=== PATIENT | male | born 1980 | race Caucasian/White ===

== ENCOUNTER 2019-05-29 07:52 | Outpatient (RCR) | payer MEDICAID, SELFPAY ==
--- NOTE | 2019-05-29 07:47 | PTOPEVAL ---
Thank you for referring this patient to [facility]. Please review, sign, date and return this plan of care [facility]. I agree with and certify that the following plan of care is medically necessary. Referring Physician Date Admitting Provider: Attending Provider: Floresita Daugherty MD Referring Provider: *PT Outpatient Evaluation Start: 05/29/19 07:04 Freq: Status: Active Protocol: Document 05/29/19 07:05 RUST (Rec: 05/29/19 07:37 RUST [id number]) Therapy Assessment Status Assessment Status Assessment Status Evaluation Outpatient Past Medical History Past Medical History Past Medical History Status Patient Denies Significant Past Medical History Evaluation Information Problem Diagnosis neck pain Onset 05/16/19 Additional Evaluation Detail ndi = 50% Subjective Information patient reports he has been Query Text:As Reported By Patient/ having pain in the neck and L Family shoulder for about 3 weeks. he reports no injury. he reports was active the night before playing with his child. he reports then a sharp turnt he next day he had a small twinge when turning his head quikcly . he reports he now has pain down the L shoulder and numbness into the L hand. he reports the numbness to the whole hand, but greater along the smaller digits. Prior Level of Function Comments Additional Prior Level of Function patient reports priro to 3 Comments weeks ago he was pain and symptom free. he reports he has had pain in the low back years ago and had good results from physical therapy. 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 he reprots icnreaed pain with moving the neck, especially turning head to look over shoulders. Pain Assessment Timing of Pain Assessment Timing of Pain Assessment Assessment Pain Scale Pain Scale Used Numeric (1 - 10) Self Report Pain Assessment Left Neck Reported Pain Level 9 Pain Description Tightness P
--- NOTE | 2019-08-12 07:47 | PCPTNOTE ---
08/12/19 - mr. tolbert has not been to skilled PT in over a month. as of this date, he will be dc'd from skilled PT due to lack of continued attendance and a loss of insurance authorization. all progress towards goals will be taken from his most recent evaluation/note.
== END 2019-06-19 09:05 | disposition home or self-care (01) ==
LOC: CHSPT 07:52
PROVIDERS: Visit Provider Internal Medicine
DX: M54.2 Cervicalgia (principal)
CPT/HCPCS: 97012; 97014; 97110; 97140; 97161; G0283

== ENCOUNTER 2019-11-10 16:57 | Outpatient (CLI) | payer BC, SELFPAY ==
--- NOTE | ~2019-11-10 | XR_ITS ---
XR chest 2V DATE: 11/10/2019 17:18 INDICATION: Hypertension. TECHNIQUE: PA and lateral views COMPARISON: None FINDINGS: There is bilateral hyperinflation. No pulmonary infiltrate or consolidation, pleural effusi on or pulmonary vascular congestion or pneumothorax. Normal heart size. No hilar or mediastinal enlargement. Thoracic scoliosis and mild degenerative change. IMPRESSION: Bilateral hyperinflation No active cardiopulmonary disease Scoliosis and mild degenerative change of the thoracic spine Reviewed, dictated and finalized at location A.
== END 2019-11-10 16:58 | disposition home or self-care (01) ==
PROVIDERS: PCP Internal Medicine; Visit Provider Internal Medicine
DX: I10 Essential (primary) hypertension (principal); R91.8 Other nonspecific abnormal finding of lung field
CPT/HCPCS: 71046

== ENCOUNTER 2019-11-11 08:06 | Emergency (ER) | payer BC, SELFPAY ==
[2019-11-11 08:10] VITALS: BP 157/96; PULSE 101; RESP 18; TEMP 36.5; O2SAT 100
--- NOTE | 2019-11-11 08:14 | ECG_ITS ---
Measurements Intervals [place] Rate: 98 P: 76 UT: 157 QRS: 91 QRSD: 100 T: 72 QT: 334 QTc: 427 Interpretive Statements SINUS RHYTHM RIGHT AXIS DEVIATION PEAKED T WAVES- CONSIDER HYPERKALEMIA OR ISCHEMIA BASELINE ARTIFACT- II, III, AVR, AVF ABNORMAL ECG Electronically Signed On 11-11-2019 8:37:14 CDT by Isauro Raya D.O.
[2019-11-11 08:36] VITALS: BP 142/92; PULSE 87; RESP 20; O2SAT 100
--- NOTE | 2019-11-11 09:22 | ED.GENADULT ---
HPI - General Adult General Chief complaint: Unspecified Stated complaint: chest pain Source: patient Mode of arrival: ambulatory Limitations: no limitations History of Present Illness HPI narrative: 39 y.o. awoke this AM with a cold sweat, feeling off and having palpitationis. This was associated with passing a very loose, almost watery stool. His home blood pressure measurement was ~ 150/80 with a pulse of 118. His temperature taken with 3 different thermometers was 96 degrees. His mouth has been dry and he finds himself periodically needing to take a deep breath. He denies pain. He has been having palpitations for the last 3 nights which has kept him from sleeping He was seen by Dr. Daugherty on 11/09. Chest X ray showed no acute cardiopulmonary findings; ECG was read as normal variant. His electrolyes were normal, potassium was 4.2. He was diagnosed with hypertension. Venlafaxine 37.5 mg daily was started. He has a hx of social anxiety. He was seen on 11/08 in a [facility] clinic with sinus congestion. He was diagnosed with sinusitis and started on Augmentin. He has had ringing in his ears since 10/13 Related Data Home Medications Medication Instructions Recorded Confirmed amoxicillin-pot clavulanate 1 tablet PO BID 11/11/19 11/11/19 venlafaxine 37.5 mg PO DAILY 11/11/19 11/11/19 Allergies Allergy/AdvReac Type Severity Reaction Status Date / Time No Known Allergies Allergy Verified 05/19/19 16:50 Review of Systems Constitutional: Constitutional: Reports no additional constitutional complaints ENT: Reports other (sinus pressure has improved from 2 days ago.) Cardiovascular: Cardiovascular: Denies chest pain and Denies radiating jaw, neck or arm pain Respiratory: Respiratory: Denies cough and Denies dyspnea Gastrointestinal: Gastrointestinal: Denies abdominal pain, Denies nausea and Denies vomiting Neurologic: Denies headache(s) Psychiatric: Comments: feeling anxious. [facility] Past Medical History Medical History (Updated 11/12/19 @ 08:07 by Jase Abebe MD) Anxiety Low back pain Surgical History Surgical History (Updated 05/19/19 @ 16:42 by Benedict Mccray MD) History of testicular surgery Family History Family History (Updated 11/12/19 @ 08:07 by Jase Abebe MD) Father , of heart attack in his early 50s No problems noted. Mother , of metastatic cancer Anxiety Social History Social History Smoking status: Former smoker Alcohol intake: former Substance use: never Exam Const: General: no acute distress and alert Orientation/consciousness: patient oriented x3 HENMT: Head: normal to inspection Face and sinus: sinus tenderness (minor tenderness) maxillary Throat: posterior oropharynx normal Eyes: Conjunctivae: conjunctivae normal Neck: Neck: normal visual inspection and no lymphadenopathy Chest: Chest palpation & inspection: normal inspection of the chest Resp: Effort & Inspection: normal respiratory effort Auscultation: clear to auscultation bilaterally Cardio: Rate: regular rate Rhythm: regular rhythm GI: GI Palp: Yes Soft to palpation and No Tenderness to palpation present (GI) Skin: General skin exam: normal color Rashes: no rashes Neuro: General: patient oriented x3 and moves all extremities Extrem: General: normal to inspection and no edema Psych: Mental Status: mental status grossly normal Affect: Anxious affect present Thought content: Yes Normal thought content present Course Course Emergency Course: Telemetry revealed no tachycardia or arrhythmia. Vital Signs Vital signs: Vital Signs Temperature 36.5 C 11/11/19 08:10 Pulse Rate 101 H 11/11/19 08:10 Respiratory Rate 18 11/11/19 08:10 Blood Pressure 157/96 H 11/11/19 08:10 Pulse Oximetry 100 11/11/19 08:10 Temperature 36.7 C 11/11/19 09:36 Pulse Rate 75 11/11/19 0
[2019-11-11 09:36] VITALS: BP 149/88; PULSE 75; RESP 18; TEMP 36.7; O2SAT 100
--- NOTE | 2019-11-18 16:56 | ED_ITS ---
HPI - General Adult General Chief complaint: Unspecified Stated complaint: chest pain Source: patient Mode of arrival: ambulatory Limitations: no limitations Related Data Home Medications Medication Instructions Recorded Confirmed amoxicillin-pot clavulanate 1 tablet PO BID 11/11/19 11/11/19 venlafaxine 37.5 mg PO DAILY 11/11/19 11/11/19 Allergies Allergy/AdvReac Type Severity Reaction Status Date / Time No Known Allergies Allergy Verified 05/19/19 16:50 [facility] Past Medical History Medical History (Updated 11/12/19 @ 08:07 by Jase Abebe MD) Anxiety Low back pain Surgical History Surgical History (Updated 05/19/19 @ 16:42 by Benedict Mccray MD) History of testicular surgery Family History Family History (Updated 11/12/19 @ 08:07 by Jase Abebe MD) Father , of heart attack in his early 50s No problems noted. Mother , of metastatic cancer Anxiety Social History Social History Smoking status: Former smoker Alcohol intake: former Substance use: never Course Vital Signs Vital signs: Vital Signs Temperature 36.5 C 11/11/19 08:10 Pulse Rate 101 H 11/11/19 08:10 Respiratory Rate 18 11/11/19 08:10 Blood Pressure 157/96 H 11/11/19 08:10 Pulse Oximetry 100 11/11/19 08:10 Temperature 36.7 C 11/11/19 09:36 Pulse Rate 75 11/11/19 09:36 Respiratory Rate 18 11/11/19 09:36 Blood Pressure 149/88 H 11/11/19 09:36 Pulse Oximetry 100 11/11/19 09:36 Medical Decision Making Vital Signs Vital Signs: Vital Signs Temperature 36.5 C 11/11/19 08:10 Pulse Rate 101 H 11/11/19 08:10 Respiratory Rate 18 11/11/19 08:10 Blood Pressure 157/96 H 11/11/19 08:10 Pulse Oximetry 100 11/11/19 08:10 Temperature 36.7 C 11/11/19 09:36 Pulse Rate 75 11/11/19 09:36 Respiratory Rate 18 11/11/19 09:36 Blood Pressure 149/88 H 11/11/19 09:36 Pulse Oximetry 100 11/11/19 09:36 Discharge Plan Discharge Clinical Impression: Anxiety, Diarrhea, Heart palpitations Patient Disposition: Home, Self-Care Condition: Stable Instructions: Antibiotic Form, Acute Diarrhea (ED), Anxiety (ED) Additional Instructions: follow up Dr. Daugherty tomorrow. Prescriptions: No Action venlafaxine 37.5 mg capsule,extended release 24hr 37.5 mg PO DAILY RF: 0 amoxicillin-pot clavulanate 875-125 mg tablet 1 tablet PO BID RF: 0 Follow-up/Referrals: Floresita Daugherty MD [Primary Care Provider] - Time of Disposition: 09:32 Discharge Date/Time: 11/11/19 09:41
== END 2019-11-11 09:41 | disposition home or self-care (01) ==
PROVIDERS: Emergency Provider Family Medicine; PCP Internal Medicine
DX: F41.9 Anxiety disorder, unspecified (principal); R19.7 Diarrhea, unspecified; R00.2 Palpitations
CPT/HCPCS: 93005; 99283

== ENCOUNTER 2019-12-04 14:43 | Outpatient (CLI) | payer BC, SELFPAY | END 2019-12-04 14:44 | disposition home or self-care (01) | LOC: ANHAUDIO 14:45 | PROVIDERS: PCP Internal Medicine; Visit Provider Otolaryngology | DX: H93.13 Tinnitus, bilateral (principal); H90.3 Sensorineural hearing loss, bilateral | CPT/HCPCS: 92557; 92567 ==

== ENCOUNTER 2023-10-24 16:00 | Outpatient (RCR) | payer OTHER, SELFPAY ==
--- NOTE | 2023-10-24 17:37 | OPREHPOC ---
Outpatient Therapy Plan of Care This is a Multidisciplinary Plan of Care that may contain components documented by all disciplines (PT, OT, and ST.) PT Problem 1 PT Problem #1 Knowledge Deficit PT Goal 1 Goal The patient will be independent in a home exercise program. Target Visit 6 PT Problem 2 PT Problem #2 Pain PT Goal 1 Goal The patient will report no greater than 3/10 right back pain with daily activities. Target Visit 12 PT Problem 3 PT Problem #3 Impaired Range of Motion PT Goal 1 Goal 1. The patient will demonstrate lumbar flexion AROM of 50 degrees to improve ability to bend. 2. The patient will demonstrate 160 degrees of right shoulder abduction AROM to improve overhead reaching ability. Target Visit 12 PT Problem 4 PT Problem #4 Impaired Strength PT Goal 1 Goal 1. The patient will demonstrate at least 4/5 strength in the abdominals and lumbar extensors to improve ability to lift and carry. Target Visit 12 PT Problem 5 PT Problem #5 Impaired Functional Mobil PT Goal 1 Goal The patient will demonstrate less than 30% self perceived disability per the Oswestry Back Index. Target Visit 12
--- NOTE | 2023-10-24 17:37 | PTOPEVAL1 ---
Assessment and note entered by Judy Guzman, PT Evaluation Information Assessment Status Evaluation Diagnosis acute low back pain/lumbar strain Onset 10/20/23 Subjective Information Karson Scanlon reports he injured his lower back on 10/20/23 when he was trying to dig out a ditch. He was leaning forward and lifted a heavy shovel full of dirt and he felt pain in his lower back. The next day he could barely walk and had difficulty lifting the toilet seat. He also started noticing right shoulder blade pain on 10/20. He went to the doctor on 10/22/23 and was diagnosed with a strain in his lumbar spine. He was then referred to PT and given medication. He is noting pain is improving but still increases by the end of the day. 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 Reported Pain Level Pain Score 4,6,4: Self Report Assessment PT Clinical Summary Karson Scanlon presents with acute low back pain with referral proximally to the right scapular region. He is having difficulty lifting, bending at the waist, walking, prolonged positions, and working in construction. He objectively demonstrates tenderness in the right lumbar, thoracic, and scapular muscles; decreased lumbar AROM; decreased core strength; decreased right shoulder abduction and flexion AROM; decreased right shoulder strength; right scapular winging; and decreased functional abilities. He will benefit from skilled PT to address these limitations. Plan of Care Interventions Electrical Stimulation,Hot Pack/Cold Pack,Manual Therapy,Neuro Re-education,Patient/Caregiver Educati,Therapeutic Activities,Therapeutic Exercise PT Services Indicated Yes Treatment Frequency and 3 times a week for 12 visits Duration These treatments will address the objective and functional deficits as defined above. The patient will be advanced safely and appropriately in order for the patient to progress towards his/her prior level of function. Additional exercises will be introduced and as well as a comprehensive home exercise program upon discharge, if needed, ?to ensure carryover of functional gains achieved in the clinic. This treatment plan has been reviewed and agreement upon by the patient.
--- NOTE | 2023-11-07 07:05 | PCPTNOTE ---
Patient cancelled session this morning. Left message last night.
--- NOTE | 2023-11-14 08:00 | PCPTNOTE ---
No call, no show.
--- NOTE | 2023-11-16 08:05 | PCPTNOTE ---
No call, no show this date.
--- NOTE | 2024-02-20 07:48 | PCPTNOTE ---
Pt is discharged after completing 5 skilled PT visits. He has not been seen since 11/09/23. -Judy Guzman, PT
== END 2023-11-09 23:59 | disposition home or self-care (01) ==
LOC: CHSPT 16:00
PROVIDERS: PCP Internal Medicine; Visit Provider Internal Medicine
DX: M54.50 Low back pain, unspecified (principal)
CPT/HCPCS: 97014; 97110; 97140; 97161; G0283

== ENCOUNTER 2024-07-30 14:11 | Outpatient (CLI) | payer OTHER, SELFPAY ==
[2024-07-30 14:24] LABS: Hemoglobin 15.1 g/dL (14.0-18.0); Mean Corpuscular HGB Conc 34.3 g/dL (32-36); Mean Corpuscular Hemoglobin 30.9 pg (27.0-31.0); Platelet Count Result 151 K/mm3 (150-420); Red Blood Count 4.89 M/mm3 (4.70-6.10); Red Cell Distribution Width 11.8 % (11.6-14.4); White Blood Count 4.5 K/mm3 (4.8-10.8)
[2024-07-30 14:56] LABS: Add Urine Microscopic? NO; Appearance Urine Clear (Clear); Bilirubin Urine Negative (Negative); Blood Urine Negative (Negative); Color Urine Light Yellow (Yellow); Glucose Urine UA Negative (Negative); Ketones Urine 1+ (Negative); Leukocyte Esterase Ur Negative (Negative); Nitrate Urine Negative (Negative); Protein Urine Negative (Negative); Urobilinogen Urine 0.2 mg/dL (0.2-1.0); pH Urine 6.5 (5.0-8.0)
--- OUTSIDE RECORDS SUMMARY | 2024-07-30 15:08 | XMS_ITS | Encounter Summary ---
Author Organization [employer] Address 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
--- OUTSIDE RECORDS SUMMARY | 2024-07-30 15:08 | XMS_ITS | Encounter Summary ---
Author Organization [employer] Address [address] [place] [address] Care Team Providers Care Cafeteria Worker Name Role Phone Unavailable Primary Care Provider Unavailabl e Encounter Details Date Type Department Care Team (Late st Contact Info) Description 01/22/1999 Outpatient Historical [facility] Armstrong MD [address] [place] [id number] Social History Tobacco Use Types Packs/Day Years Used Date Smoking Tobacco: Never Assessed Sex and Gender Information Value Date Recorded Sex Assigned at Not on file Legal Sex Male 3:34 AM PET SITTING Gender Identity Not on file Sexual Orientation Not on file documented as of this encounter Plan of Treatment Not on file documented as of this encounter Visit Diagnoses Not on filedocumented in this encounter
--- OUTSIDE RECORDS SUMMARY | 2024-07-30 15:08 | XMS_ITS | Referral Summary ---
Author Organization [facility] Address [address] [place] [address] Care Team Providers Care Demonstrator Knitting Name Role Phone Floresita Daugherty MD Primary Care Provider [phone] Source Comments [facility]non-owned Affiliates and Associated Physician Practices is amultiple site organization consisting of ambulatory clinics and hospital sitesin [place], [place], [place] and [place]. This disclosure is being madepursuant to the Care Everywhere program and may not contain all information available regarding this patient. Last updated 18.[facility] Allergies No known active allergies Medications * Be aware that medications may not be up to date on this document. Alwaysverify current medications with the patient. Medication Sig Dispensed Refills Start Date End Date Status ibuprofen (ADVIL) 200 MG capsule Take 200 mg by mouth 4 times daily as needed for Pain Active Oxymetazoline HCl (VICKS SINEX NA) Active Social History Tobacco Use Types Packs/Day Years Used Date Smoking Tobacco: Every Day Smokeless Tobacco: Never Comments:marijuana Sex and Gender Information Value Date Recorded Sex Assigned at Not on file Gender Identity Not on file Sexual Orientation Not on file Last Filed Vital Signs Vital Sign Reading Time Taken Comments Blood Pressure 146/100 11/09/2019 12:55 PM CDT Pulse 84 11/09/2019 12:43 PM CDT Temperature 37.2 C (98.9 F) 11/09/2019 12:43 PM CDT Respiratory Rate 16 11/09/2019 12:43 PM CDT Oxygen Saturation 97% 11/09/2019 12:43 PM CDT Inhaled Oxygen Concentration - - Weight 68 kg (150 lb) 11/09/2019 12:43 PM CDT Height 175.3 cm (5' 9 ) 11/09/2019 12:43 PM CDT Body Mass Index 22.15 11/09/2019 12:43 PM CDT Plan of Treatment Not on file Care Teams Demonstrator Knitting Relationship Specialty Start Date End Date Floresita Daugherty MD PCP - General Internal Medicine 11/09/19
--- OUTSIDE RECORDS SUMMARY | 2024-07-30 15:08 | XMS_ITS | Patient Health Summary ---
Author Organization [facility] Address [address] [place] [address] Care Team Providers Care Anatomy Teacher Name Role Phone Floresita Daugherty MD Primary Care Provider [phone] Note from [facility],non-owned Affiliates and Associated Physician Practices is amultiple site organization consisting of ambulatory clinics and hospital sitesin [place], [place], [place] and [place]. This disclosure is being madepursuant to the Care Everywhere program and may not contain all information available regarding this patient. Last updated 18.[facility] Allergies No known active allergies Medications * Be aware that medications may not be up to date on this document. Alwaysverify current medications with the patient. * ibuprofen (ADVIL) 200 MG capsule Take 200 mg by mouth 4 times daily as needed for Pain * Oxymetazoline HCl (VICKS SINEX NA) Social History Tobacco Use Types Packs/Day Years [...] Mass Index 22.15 11/09/2019 12:43 PM CDT Care Teams Anatomy Teacher Relationship Specialty Start Date End Date Floresita Daugherty MD PCP - General Internal Medicine 11/09/19
--- OUTSIDE RECORDS SUMMARY | 2024-07-30 15:08 | XMS_ITS | Encounter Summary ---
Author Organization [employer] Address 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
--- OUTSIDE RECORDS SUMMARY | 2024-07-30 15:08 | XMS_ITS | Clinical Summary ---
Author Organization [facility] Address [address] [place] [address] Phone Care Team Providers Care Locomotive Electrician Name Role Phone Unavailable Primary Care Provider Unavailabl e Medications No known medications Social History Tobacco Use Types Packs/Day Years Used Date Smoking Tobacco: Never Smokeless Tobacco: Never Alcohol Use Standard Drinks/Week Comments Yes 0 (1 standard drink = 0.6 oz pur e alcohol) OCCAS Sex and Gender Information Value Date Recorded Sex Assigned at Not on file Legal Sex Male 3:34 AM MANAGER ASSESSMENT Gender Identity Not on file Sexual Orientation Not on file Occupation Industry Job Start Date Job End Date Not on file Not on file Not on file Not on file Last Filed Vital Signs Vital Sign Reading Time Taken Comments Blood Pressure 126/75 01/23/2013 3:00 PM CDT Pulse 80 01/23/2013 3:00 PM CDT Temperature 36.8 C (98.3 F) 01/23/2013 11:17 AM CDT Respiratory Rate 18 01/23/2013 3:00 PM CDT Oxygen Saturation 99% 01/23/2013 3:00 PM CDT Inhaled Oxygen Concentration - - Weight 72.6 kg (160 lb) 02/28/2013 11:14 AM CDT Height 177.8 cm (5' 10 ) 02/28/2013 11:14 AM CDT Body Mass Index 22.96 02/28/2013 11:14 AM CDT Plan of Treatment Health Maintenance Due Date Last Done Comments DTAP/TDAP/TD VACCINES (1 - Tdap) 2000 HEPATITIS B VACCINES (1 of 3 - 19+ 3-dose series) 2000 INFLUENZA VACCINE (#1) 2024 HPV VACCINES Aged Out No longer eligi ble based on patient's age to complete this topic PNEUMOCOCCAL VACCINE 0-64 YEARS Aged Out No longer eligible based on patient's age to complete this topic
--- OUTSIDE RECORDS SUMMARY | 2024-07-30 15:08 | XMS_ITS | Encounter Summary ---
Author Organization [employer] Address 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
--- OUTSIDE RECORDS SUMMARY | 2024-07-30 15:08 | XMS_ITS | Clinical Summary ---
Author Organization [facility] Address [address] [place] [address] Care Team Providers Care Chemical Dependency Therapist Name Role Phone Floresita Daugherty MD Primary Care Provider [phone] Social History Tobacco Use Types Packs/Day Years Used Date Smoking Tobacco: Never Assessed Sex and Gender Information Value Date Recorded Sex Assigned at Not on file Legal Sex Male 1:53 PM CDT Gender Identity Not on file Sexual Orientation Not on file Plan of Treatment Health Maintenance Due Date Last Done Comments Annual Physical 1984 Hepatitis C 1999 DTaP, Tdap and Td Vaccines ( 1 - Tdap) 2000 Hepatitis B Vaccines (1 of 3 - 19+ 3-dose series) 2000 COVID-19 Vaccine (2023-2 5 season) 2024 Influenza Adult (#1) 2024 HPV Vaccines Aged Out No longer eligi ble based on patient's age to complete this topic Meningococcal B Vaccine Aged Out No l onger eligible based on patient's age to complete this topic Meningococcal Vaccine Aged Out No minerva joy eligible based on patient's age to complete this topic Pneumococcal Vaccine: Pediat rics (0 to 5 Years) and At-Risk Patients (6 to 64 Years) Aged Out No longer eligible b ased on patient's age to complete this topic RSV Immunizations Under 20 Months Aged Out No longer eligible based on patient's age to complete this topic Insurance [facility] Care Teams Chemical Dependency Therapist Relationship Specialty Start Date End Date Floresita Daugherty MD [address] [place] [address] PCP - General INTERNAL MEDICINE 12/02/19
--- OUTSIDE RECORDS SUMMARY | 2024-07-30 15:08 | XMS_ITS | Encounter Summary ---
Author Organization [employer] Address 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
--- OUTSIDE RECORDS SUMMARY | 2024-07-30 15:08 | XMS_ITS | Data Portability ---
Author Organization [facility], [place], [facility] Address [address] [place] [address] Assessment No assessment recorded. Plan of Treatment Reminders Order Date Submit Date Provider Last Modified By Organization Details Last Modified Time Details Appointments None recorded. Lab None recorded. Referral None recorded. Procedures None recorded. Surgeries None recorded. Imaging US, testicle 2018 019 [facility], [address], [place], [address], 9 09:35:41 MRI, lumbar spine, w/o contrast 2018 019 [facility], [address], [place], [address], 9 09:16:31 Medication Orders Kalium Carbonicum 2018 019 [facility] Not available 9 17:14:32 Bambusa Stannum 2018 019 amalic Not available 9 10:09:41 Kalium Carbonicum 2018 019 c[place] Not available 9 11:47:27 [place] 2018 019 amalic [facility], [address], [place], [place], [id number], 9 10:09:34 Kalium Carbonicum 2018 019 cw[place]ling [facility], [address], [place], [place], [id number], 9 11:23:05 Patient TargetsNo targets recorded. Patient Instructions Encounter Date Encounter Id Patient Instructions Last Modified By Organization Details Last Modified Time 07/08/2018 [id number] back care and preventing injuries: care instructions [email or web address] Not available 07/08/2018 17:14:32 getting back to normal after low back pain: care instructions [email or web address] Not available 07/08/2018 17:14:32 learning about relief for back pain c[place]ling Not available 07/08/2018 17:14:32 08/09/2018 [id number] Schedule DMSA an d CaEDTA challenges. [email or web address] Not available 08/09/2018 11:03:25 11/13/2018 [id number] upper respirator y infection (cold): care instructions cwessling Not available 11/13/2018 11:47:27 Wean Kratom cwessling Not available 10/24 11:40:18 02/13/2019 [id number] Resume core exercises twice daily for 10 minutes each cwessling Not available 02/13/2019 11:23:04 Reason for Referral None Reported. Results Created Date Observation Date Name Description Value Unit Range Abnormal Flag Note LastModifiedBy Organization Detail LastModifiedTime 07/23/19 19 07/23/2018 MRI L-spi ne, w/O No observ ation record ed. [facility] [address] [place], [address], 02/13/2019 11:20:59 07/23/19 19 07/23/2018 US scrot um and fely nts No observ ation record ed. c[facility]ling [facility] [address] [place], [address], 08/09/2018 10:33:27 Result Notes None recorded. Problems No Known Problems Procedures Surgical History None recorded. Imaging Results Imaging Date Name Status LastModified by [facility] Details LastModified Time 07/23/2018 MRI L-spine, w/O completed [facility] [address] [place], [address], 02/13/2019 11:20:59 07/23/2018 US scrotum and contents completed [facility] [address] [place], [address], 08/09/2018 10:33:27 Procedure Notes None recorded. Medical Equipment None Reported. Allergies No known drug allergies Medications Name Sig Start Date Stop Date Status Note LastModified by Organization Details LastModified Time Kalium Carbonicum 200 1m 2d; 12x 3 bid 2018 active Not Available Not Available Not Avai lable Kalium Carbonicum 200 1m 2d; 12x 3 bid 2018 active Not Available Not Available Not Avai lable Prescriptio n - New active Not Available Not Available Not Available Puls[place] 200 1m 2d 02/13 completed Not Available Not Available Not Available Kalium Carbonicum 200 1m 2d; 9c 2 bid 2018 active Not Available Not Available Not Avai lable Bambusa Stannum s.c. now and twice weekly 02/13 completed Not Available Not Available Not Available cyclobenzap rine 10 mg tablet TAKE 1 TABLET BY MOUTH EVERY 6 TO 8 HOURS NEEDED FOR PAIN active Not Available Not Available No t Available Chemet 100 mg capsule Take 5 capsules prior to urine collectio n 02/13 completed Not Available Not Available Not Available ketorolac 10 mg tablet TAKE 1 TABLET BY MOUTH 3 TIMES A DAY FOR 5 DAYS NEEDED FOR PAIN active Not Available Not Available No t Available dexamethaso ne 2 mg tablet TAKE 4 TABS DAILY X2DAYS, 3TABS DAILY X2DAYS, 2TABS DAILY X2DAYS, 1TAB DAILY X2DAYS active Not Available Not Available No t Available hydrocodone 7.5 mg-acetamin ophen 325 mg tablet TAKE 1 TABLET BY MOUTH EVERY 6 HOURS NEEDED FOR PAIN 07/08 completed Not Available Not Available Not Available cephalexin 500 mg capsule TAKE 1 CAPSULE BY MOUTH FOUR TIMES A DAY TIL FINISHED 02/13 completed Not Available Not Available Not Available naproxen 500 mg tablet TAKE 1 TABLET BY MOUTH TWICE A DAY WITH FOOD active Not Available Not Available No t Available Vitals Date Recorded Body height Body mass index (BMI) Body weight Heart rate Systolic blood pressure Diastolic blood pressure Provider Name and Address Organization Details Last Updated DateTime 9 177.8 cm 21.6 kg/m2 08107.5 7 g 88 /min 145 mm[Hg] 92 mm[Hg] Aneta Villanueva [facility] 9 15:09:48 Date Recorded Body height Body mass index (BMI) Body weight Heart rate Systolic blood pressure Diastolic blood pressure Provider Name and Address Organization Details Last Updated DateTime 9 177.8 cm 21.7 kg/m2 88022.4 5 g 75 /min 147 mm[Hg] 79 mm[Hg] Aneta Villanueva [facility] 9 10:00:51 Date Recorded Body height Body mass index (BMI) Body weight Heart rate Systolic blood pressure Diastolic blood pressure Provider Name and Address Organization Details Last Updated DateTime 9 177.8 cm 21.4 kg/m2 89191.2 6 g 71 /min 149 mm[Hg] 91 mm[Hg] Mily Villanueva [facility] 9 10:37:36 Date Recorded Body height Body mass index (BMI) Body weight Heart rate Systolic blood pressure Diastolic blood pressure Provider Name and Address Organization Details Last Updated DateTime 9 177.8 cm 22.2 kg/m2 22091.8 2 g 80 /min 161 mm[Hg] 100 mm[Hg] Aneta Villanueva [facility] 9 10:10:31 Social History Question Answer Notes LastModified by Organizat ion Details LastModified Time Tobacco Smoking Status Never Smoker PANDA Rodriguez [facility] 07/08/2018 15:10:31 What Was The Date Of Your Most Recent Tobacco Screening? 07/08/2018 Information n ot available 01/16/2019 How Much Tobacco Do You Smoke? No amalic Information not available 07/08/2018 Sex: Unknown Functional Status None recorded. Mental Status None recorded. Family History Nothing Reported. Medical History Condition Response Coronary Artery Disease N Gout N Kidney Stones N Blood Diseases N Hyperthyroidism N Hypothyroidism N COPD N Depression N Developmental or Behavioral Disorders N Anxiety Disorder N Muscle, Joint, or Bone Problems N Vision or Eye Problems N Arthritis N Head Injury/Concussion N Congenital Anomalies N Cancer N Stroke N ADHD N Bladder or Kidney Problems N Hospital Admission other than N High Cholesterol N Liver Disease N Fibromyalgia N Headaches N Kidney Disease N Ear or Hearing Problems N Thyroid Problems N Skin Problems N Anemia N Constipation N Mental Illness N Diabetes N Bedwetting N Heart Problems/Murmur N Seizures/Epilepsy N Tuberculosis N Diverticulitis N Asthma N Allergies N Reflux/GERD N Heart Disease N Pulmonary Embolism N Hypertension N Chicken Pox Y Autism Spectrum Disorder (ASD) N Osteoporosis N Past Encounters Encounter ID Performer Location Encounter Start Date Encounter Closed Date Diagnosis/Indication Diagnosis SNOMED-CT Code Diagnosis ICD10 Code Diagnosis Note [id number] Mitchell Aguilar MD Main Office [address] [place] [address] 07/08/2018 14:34:05 07/08/2018 17:29:48 Lumbar spondylosis 138018094 M47.26 Degenerati on of lumbar intervertebral disc 38855938 M51.36 Sciatica 89208279 M54.32 Chronic low back pain 27 4336198 M54.5 Low back pain 703418086 M54.5 Testicular mass 65429024 N50.89 [id number] Mitchell Aguilar MD Main Office [address] [place] [address] 08/09/2018 09:52:03 08/09/2018 11:07:48 Lumbar spondylosis 839662476 M47.26 Degenerati on of lumbar intervertebral disc 64332675 M51.36 Sciatica 80903484 M54.32 Chronic low back pain 27 7756843 M54.5 Low back pain 977825695 M54.5 Hydrocele of testis 266[address] of heavy metal 69767942 T56.91XA [id number] Mitchell Aguilar MD Main Office [address] [place] [address] 11/13/2018 10:26:13 11/13/2018 12:00:07 Lumbar spondylosis 239460963 M47.26 Degenerati on of lumbar intervertebral disc 89302731 M51.36 Sciatica 72389351 M54.32 Chronic low back pain 27 1455574 M54.5 Hydrocele of testis 266[address] of heavy metal 95278519 T56.91XA Upper resp iratory infection 12545779 J06.9 [id number] Mitchell Aguilar MD Main Office [address] [place] [address] 02/13/2019 10:03:20 02/13/2019 11:30:53 Lumbar spondylosis 522721675 M47.26 Prolapsed lumbar intervertebral disc 549050963 M51.26 Health Concerns Section Related Observation LastModified by Organization Detai ls LastModified Time None Recorded Concern Status LastModified by Organization Details LastModified Time None Recorded Advance Directives Directive None Recorded Payers Encounter Date Sequence Insurance Name Policy Number Policy Aparicio Covered Member ID Aparicio Member ID Guarantor Name 07/08/2018 1 *SELF PAY* De nnis Ray Scanlon 08/09/2018 1 *SELF PAY* De nnis Ray Scanlon 11/13/2018 1 *SELF PAY* De nnis Ray Scanlon 02/13/2019 1 *SELF PAY* De nnis Ray Scanlon Notes Date Note Type Note Provider Name and Address Organization Details Recorded Time 9 text/html Get establishedChronic low back pain.Recent X-ray at [facility] showed DJD with minimal L3-4 retrolisthesis.Interspa ce height loss moderate at L3-4, moderately severe at L4-5, and moderately prominent at L5-S1.Pain recently worse now << stooping and now also R leg.Has become much easier to injure with just one wrong move.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 >lie flat on stomach with back bent backwards.>Lie with knees and calves elevated.>pressure like lean on his own fists.>standHas gone to [facility]. Anxiety since childhood. Always been shy and anxious about meeting new people. Age 10 or 11 had seizures - parents got - was 2nd of 4 children and grew up largely in poverty and diet was not good as result - would start with numbness of lips and quivering. Treated with shots for a year and then never had seizures again. Never took oral antiepileptics. Likes meat and potatoes - oily things, salt also sweets. 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 Bad teeth with many cavities and several had to be extracted. L testicle swollen. ?varicocele. Had surgery at one point. Firm and slightly tender. Slightly smaller in size in recent years. 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 Mitchell Aguilar MD [address] [place], [address], [facility] 07/08/2018 17:14:35 9 text/html Had sore throat a week ago - stuffy nose then release of green mucus from nose and productive cough. Now better - still blows out colored mucus in morning. Comes out readily - and some cough throughout the day. Back not bothering much - has been much better , and not limiting the work he can do. Lot less stiffness. Kratom use has declined from 14 gm to 5-6 gm per day.Has not used injections Mood somewhat better and matos optimistic. Craves sweets. cold intolerant and worse from storm fronts. but wants outdoors Mitchell Aguilar MD [address] [place], [address], [facility] 11/13/2018 11:47:48 9 text/html weaned self off the Kratom. Low energy.A little bit achey againBack better. Much better than it was and not as debilitating.Legs stiff. R is tighter than the L.Worst morning and evening, best is middle of day.Upright position is best like standing - much better than sitting.Walking helps.Less chiropractic.Had 4 sessions in infrared sauna which he liked.Not doing back exercises that he knows regularly like he used to. 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 Greenhouse has geothermal and compost heat. Mitchell Aguilar MD [address] [place], [address], [facility] 02/13/2019 11:24:03
--- OUTSIDE RECORDS SUMMARY | 2024-07-30 15:08 | XMS_ITS | Clinical Summary ---
Author Organization [facility] Address [address] [place] [address] Care Team Providers Care Wired Sweatband Cutter Name Role Phone Floresita Daugherty MD Primary Care Provider [phone] Source Comments [facility],non-owned Affiliates and Associated Physician Practices is amultiple site organization consisting of ambulatory clinics and hospital sitesin [place], [place], [place] and [place]. This disclosure is being madepursuant to the Care Everywhere program and may not contain all information available regarding this patient. Last updated 18.[facility] Allergies No known active allergies Medications * [...] 11/09/2019 12:43 PM CDT Plan of Treatment Health Maintenance Due Date Last Done Comments LIPID TESTING 1981 HIV SCREENING 1996 HEPATITIS C SCREENING 08/11/1999 DTAP/TDAP/TD VACCINES (1 - Tdap) 2000 HEPATITIS B VACCINE (1 of 3 - 19+ 3-dose series) 2000 PNEUMOCOCCAL VACCINE (1 of 2 - PCV) 2000 COVID-19 VACCINE (1 - 2023-2 5 season) 2024 INFLUENZA VACCINE (#1) 2024 DEPRESSION SCREENING 06/25/2024 ZOSTER VACCINE (1 of 2) 2031 HIB VACCINE Aged Out No longer eligi ble based on patient's age to complete this topic HPV VACCINE Aged Out No longer eligi ble based on patient's age to complete this topic MENINGOCOCCAL (Group B) VACCINE Aged Out No longer eligible based on patient's age to complete this topic MENINGOCOCCAL VACCINE Aged Out No minerva joy eligible based on patient's age to complete this topic Care Teams Wired Sweatband Cutter Relationship Specialty Start Date End Date Floresita Daugherty MD PCP - General Internal Medicine 11/09/19
--- OUTSIDE RECORDS SUMMARY | 2024-07-30 15:08 | XMS_ITS | Encounter Summary ---
Author Organization [employer] Address 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
[2024-07-30 15:55] LABS: Alanine Aminotransferase 28 U/L (16-63); Albumin Level 4.3 g/dL (3.4-5.0); Alkaline Phosphatase 80 U/L (46-116); Amylase 34 U/L (25-115); Anion Gap 10 mmol/L (4-12); Aspartate Amino Transferase 23 U/L (15-37); Bilirubin,Total 0.6 mg/dL (0.00-1.00); Blood Urea Nitrogen 15 mg/dL (7-18); Calcium 8.6 mg/dL (8.5-10.1); Carbon Dioxide 29 mmol/L (21-32); Chloride 100 mmol/L (98-108); Estimated Glomerular Filt Rate > 60; Glucose 96 mg/dL (70-99); Lipase 26 U/L (16-77); Osmolality Calculated 288 mOsm/kg (285-295); Potassium 4.2 mmol/L (3.5-5.1); Sodium 139 mmol/L (136-145); Total Protein 7.2 g/dL (6.4-8.2)
== END 2024-07-30 14:12 | disposition home or self-care (01) ==
PROVIDERS: PCP Internal Medicine; Visit Provider Internal Medicine
DX: R11.10 Vomiting, unspecified (principal); R19.7 Diarrhea, unspecified
CPT/HCPCS: 36415; 80053; 81003; 82150; 83690; 85027

== ENCOUNTER 2024-09-19 09:06 | Outpatient (CLI) | payer OTHER, SELFPAY ==
--- NOTE | ~2024-09-19 | XR_ITS ---
EXAMINATION: XR lumbar spine 2-3V DATE: 09/19/2024 09:31 INDICATION: Low back pain. Fall from ladder. TECHNIQUE: 3 views of lumbar spine were obtained. COMPARISON: Lumbar spine radiographs 03/22/2018 FINDINGS: Alignment is normal. Vertebral body heights are normal. There is moderately decreased disc height at L3-L4, L4-L5, and L5-S1. There is multilevel mild facet joint osteoarthritis. There are felipa gical clips in the pelvis. IMPRESSION: 1. Moderate lumbar spondylosis. Reviewed, dictated and finalized at location A.
--- NOTE | ~2024-09-19 | XR_ITS ---
EXAMINATION: XR thoracic spine 2V DATE: 09/19/2024 09:31 INDICATION: Upper back pain. Fall from ladder. TECHNIQUE: 3 views of thoracic spine were obtained. COMPARISON: Chest 2 views 11/10/2019 FINDINGS: There is 10 degrees dextroscoliosis of thoracic spine. There is mild chronic anterior wedgi ng of multiple mid thoracic vertebral bodies, stable from 11/10/2019. There is mildly decreased disc h eight at multiple levels in mid thoracic spine. There are endplate osteophytes at many levels. IMPRESSION: 1. Mild thoracic spondylosis. 2. Thoracic dextroscoliosis. Reviewed, dictated and finalized at location A.
--- NOTE | ~2024-09-19 | XR_ITS ---
EXAMINATION: XR_CERV2-3V_CR DATE: 09/19/2024 09:30 INDICATION: Neck pain. Fall. TECHNIQUE: 3 views of cervical spine were obtained. COMPARISON: None. FINDINGS: There is kyphosis of cervical spine. Vertebral body heights are normal. There is mildly dec reased disc height at C5-C6 and moderately decreased disc height at C6-C7. There is multilevel uncove rtebral joint osteoarthritis, severe bilaterally at C6-C7. There is multilevel mild facet joint osteo arthritis. There is mild central canal stenosis at C6-C7. No prevertebral soft tissue swelling. IMPRESSION: 1. Moderate cervical spondylosis. Reviewed, dictated and finalized at location A.
--- OUTSIDE RECORDS SUMMARY | 2024-09-19 09:34 | XMS_ITS | Clinical Summary ---
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
--- OUTSIDE RECORDS SUMMARY | 2024-09-19 09:34 | XMS_ITS | Encounter Summary ---
Author Organization [facility] Address 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
--- OUTSIDE RECORDS SUMMARY | 2024-09-19 09:34 | XMS_ITS | Encounter Summary ---
Author Organization [facility] Address 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
--- OUTSIDE RECORDS SUMMARY | 2024-09-19 09:34 | XMS_ITS | Clinical Summary ---
Author Organization [facility] Address [address] [place] [address] Care Team Providers Care Damage Assessor Name Role Phone Floresita Daugherty MD Primary Care Provider [phone] Social History Tobacco Use Types Packs/Day Years [...] patient's age to complete this topic Insurance [facility] [[email or web address] [[email or web address]] Care Teams Damage Assessor Relationship Specialty Start Date End Date Floresita Daugherty MD [address] [place] [address] PCP - General INTERNAL MEDICINE 12/02/19
--- OUTSIDE RECORDS SUMMARY | 2024-09-19 09:34 | XMS_ITS | Encounter Summary ---
Author Organization [facility] Address 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
--- OUTSIDE RECORDS SUMMARY | 2024-09-19 09:34 | XMS_ITS | Clinical Summary ---
Author Organization [facility] Address [address] [place] [address] Care Team Providers Care Agronomy Manager Name Role Phone Floresita Daugherty MD Primary Care Provider [phone] Source Comments [facility],non-owned Affiliates and Associated Physician Practices is amultiple site organization consisting of ambulatory clinics and hospital sitesin [place], [place], [place] and [place]. This disclosure is being madepursuant to the Care Everywhere program and may not contain all information available regarding this patient. Last updated 18.[facility] Allergies No known active allergies Medications * [...] 3 - 19+ 3-dose series) 2000 COVID-19 VACCINE (1 - 2023-2 5 season) 2024 INFLUENZA VACCINE (#1) 2024 DEPRESSION SCREENING 06/25/2024 ZOSTER VACCINE (1 of 2) 2031 HIB VACCINE Aged Out No longer eligi ble based on patient's age to complete this topic HPV VACCINE Aged Out No longer eligi ble based on patient's age to complete this topic MENINGOCOCCAL (Group B) VACC INE SHARED DECISION-MAKING Aged Out No longer eligibl e based on patient's age to complete this topic MENINGOCOCCAL GROUPS A/C/Y/W VACCINE Aged Out No longer eligible b ased on patient's age to complete this topic PNEUMOCOCCAL VACCINE Aged Out No long er eligible based on patient's age to complete this topic Care Teams Agronomy Manager Relationship Specialty Start Date End Date Floresita Daugherty MD PCP - General Internal Medicine 11/09/19
--- OUTSIDE RECORDS SUMMARY | 2024-09-19 09:34 | XMS_ITS | Encounter Summary ---
Author Organization [facility] [employer] Address 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
--- OUTSIDE RECORDS SUMMARY | 2024-09-19 09:34 | XMS_ITS | Encounter Summary ---
Author Organization [employer] Address 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
--- OUTSIDE RECORDS SUMMARY | 2024-09-19 09:34 | XMS_ITS | Encounter Summary ---
Author Organization [employer] Address 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
--- OUTSIDE RECORDS SUMMARY | 2024-09-19 09:34 | XMS_ITS | Encounter Summary ---
Author Organization [facility] Address [address] [place] [address] Care Team Providers [facility] Manager Name Role Phone Unavailable Primary Care Provider Unavailabl e Encounter Details Date Type Department Care Team (Late st Contact Info) Description 02/21/1999 Outpatient Historical [facility] Gustabo Armstrong MD [address] [place] [id number] Social History Tobacco Use Types Packs/Day Years Used Date Smoking Tobacco: Never Assessed Sex and Gender Information Value Date Recorded Sex Assigned at Not on file Legal Sex Male 3:34 AM [employer] Gender Identity Not on file Sexual Orientation Not on file documented as of this encounter Plan of Treatment Not on file documented as of this encounter Visit Diagnoses Not on filedocumented in this encounter
== END 2024-09-19 09:07 | disposition home or self-care (01) ==
PROVIDERS: PCP Internal Medicine; Visit Provider Nurse Practitioner Family
DX: M54.2 Cervicalgia (principal); M54.50 Low back pain, unspecified; S00.03XA Contusion of scalp, initial encounter; S30.810A Abrasion of lower back and pelvis, initial encounter; M43.04 Spondylolysis, thoracic region; M41.84 Other forms of scoliosis, thoracic region; M43.06 Spondylolysis, lumbar region; M43.02 Spondylolysis, cervical region
CPT/HCPCS: 72040; 72070; 72100